=== PATIENT | male | born 1985 | race Caucasian/White ===

== ENCOUNTER 2025-02-17 21:26 | Emergency (ER) | payer SELFPAY ==
[2025-02-17] MEDS: Ketorolac 30 MG/ML SDV IM STA (22:11)
== END 2025-02-17 23:01 | disposition home or self-care (01) ==
LOC: MW.ED 21:26
DX: M10.9 Gout, unspecified (principal); Z79.899 Other long term (current) drug therapy
CPT/HCPCS: 96372; 99283; A9270; J1885